=== PATIENT | female | born 1995 | race Asian ===

== ENCOUNTER 2017-03-01 14:05 | Emergency (ER) | payer OTHER ==
[2017-03-01 14:19] VITALS: BP 115/62
--- NOTE | 2017-03-01 14:21 | UC ---
Complaint Female HPI - HPI Summary HPI Summary: 22 year old female presents with suprapubic pain and hematuria. - History Of Current Complaint Chief Complaint: [facility]CGU Stated Complaint: PERSONAL Time Seen by Provider: 03/01/17 14:21 Hx Obtained From: Patient Hx Last Menstrual Period: feb 21 Onset/Duration: Sudden Onset Timing: Constant Severity Initially: Moderate Severity Currently: Moderate - Allergies/Home Medications Allergies/Adverse Reactions: Allergies Allergy/AdvReac Type Severity Reaction Status Date / Time Penicillins [PCN] Allergy Unknown Verified 03/01/17 14:12 Reaction Details PMH/Surg Hx/FS Hx/Imm Hx Previously Healthy: Yes - Surgical History Surgical History: None - Social History Alcohol Use: None Substance Use Type: None Smoking Status (MU): Never Smoked Tobacco Review of Systems Constitutional: Negative Skin: Negative Eyes: Negative ENT: Negative Respiratory: Negative Cardiovascular: Negative Gastrointestinal: Negative Genitourinary: Hematuria, Other - suprapubic pain Motor: Negative Neurovascular: Negative Musculoskeletal: Negative Neurological: Negative Psychological: Negative All Other Systems Reviewed And Are Negative: Yes Physical Exam Triage Information Reviewed: Yes Vital Signs: Initial Vital Signs Temp 36.7 C 03/01/17 14:13 Pulse 104 03/01/17 14:13 Resp 16 03/01/17 14:13 BP 115/62 03/01/17 14:13 Pulse Ox 99 03/01/17 14:13 Vital Signs Reviewed: Yes Eye Exam: Normal ENT Exam: Normal Dental Exam: Normal Neck exam: Normal Neck: Positive: 1 Respiratory Exam: Normal Cardiovascular Exam: Normal Abdomen Description: Positive: Other: - suprapubic pain Musculoskeletal Exam: Normal Neurological Exam: Normal Psychological Exam: Normal Skin Exam: Normal Complaint Female Dx - Differential Dx/Diagnosis Provider Diagnoses: suprpubic pain. hematuria Discharge - Discharge Plan Condition: Stable Disposition: HOME Prescriptions: Nitrofurantoin Monohyd Macro [Macrobid] 100 mg PO BID #[id number] Patient Education Materials: Urinary Tract Infection in Women (ED), Hematuria ( ED) Referrals: [facility] [Primary Care Provider] -
--- NOTE | 2017-03-02 18:02 | UC ---
Progress - Progress Note Progress Note: no change
--- NOTE | 2017-03-03 15:32 | UC ---
Progress - Progress Note Progress Note: no change 03/03/17 no change
== END 2017-03-01 14:47 | disposition home or self-care (01) ==
LOC: UCEAST 14:05
DX: R31.9 Hematuria, unspecified (principal); Z88.0 Allergy status to penicillin; R52 Pain, unspecified; Z32.02 Encounter for pregnancy test, result negative
CPT/HCPCS: 81003; 84702; 87077; 87086; 87186; 99202; G0463